=== PATIENT | female | born 1950 | race Caucasian/White ===

== ENCOUNTER → 2020-05-18 | Outpatient (CLI) | payer BC ==
[~2020-05-18] MED LIST: ASPIRIN 325MG325 MG PO; LIPITOR TAB 2020 MG PO; SINGULAIR10 MG PO; TOPROL XL25 MG PO; VITAMIN D31000 UNI1 PO; ZYRTEC10 M3 PO
== END ==
LOC: CT 08:00
DX: C34.12 Malignant neoplasm of upper lobe, left bronchus or lung (principal); Z72.0 Tobacco use; R91.1 Solitary pulmonary nodule; R91.8 Other nonspecific abnormal finding of lung field; Z98.1 Arthrodesis status
CPT/HCPCS: 71260; Q9963

== ENCOUNTER → 2020-11-09 | Outpatient (CLI) | payer BC | LOC: CT 07:58 | DX: C34.12 Malignant neoplasm of upper lobe, left bronchus or lung (principal); Z72.0 Tobacco use | CPT/HCPCS: 71260; Q9967 ==

== ENCOUNTER → 2021-10-25 | Outpatient (CLI) | payer BC | LOC: CT 07:41 | DX: C34.12 Malignant neoplasm of upper lobe, left bronchus or lung (principal); Z72.0 Tobacco use | CPT/HCPCS: 71260; Q9967 ==